=== PATIENT | female | born 1980 | race African-American/Black ===

== ENCOUNTER 2024-10-06 09:10 | Inpatient (IN) | payer BC ==
[~2024-10-06] VITALS: Ht 175.3 cm; Wt 75.3 kg
--- NOTE | 2024-10-06 09:52 | NUR ---
PACIENTE ALERTA Y ORIENTADA X 3. REFIERE DESDE EL FIN DE SEMANA ESTA ESTRENIDA.
--- NOTE | 2024-10-06 10:45 | NUR ---
PACIENTE PENDIENTE A XRAY
[2024-10-06] MEDS ORDERED: 0.9 % SODIUM CHLORIDE 1,000 ML IV SCH (11:00)
[2024-10-06] MEDS ORDERED: BARIUM SULFATE 450 ML ORAL.SUSP PO ONE (11:10)
[2024-10-06 11:21] LABS: HEMATOCRIT 41.1 % (36.0-45.00); HEMOGLOBIN 14.1 g/dL (12.0-15.00); MEAN CELL VOLUME 88.6 fL (80.00-100.00); MEAN CORPUSCULAR HEMOGLOBIN 30.4 pg (27.00-32.0); MEAN CORPUSCULAR HGB CONC 34.4 g/dl (32.0-36.0); PLATELET COUNT 343 K/uL (150-450); RED BLOOD COUNT 4.64 M/uL (4.00-6.00); RED CELL DISTRIBUTION WIDTH 13.4 % (11.5-14.5)
--- NOTE | 2024-10-06 11:23 | NUR ---
SE ORIENTA A PACIENTE SOBRE TRATAMIENTO MEDICO QUIEN INDICA ENTENDER Y ACEPTAR. SE COLECTAN MUESTRAS DE LABORATORIO BAJO MEDIDAS ASEPTICAS Y SE REALIZA VENOPUNCION LA CUAL SE ENCUENTRA PATENTE FORTINO DE EDEMA Y ENROJECIMIENTO. SE OFRECE A PACIENTE CONTRASTE POR BOCA Y SE LE EXPLICA JATIN CONSUMIRLO Y NOTIFICAR A PERSONAL DE ENFERMERIA CUANDO LO CULMINE.
[2024-10-06 11:44] LABS: PARTIAL THROMBOPLASTIN TIME 29.9 SECONDS (22.0-34.0); PROTHROMBIN TIME 10.9 SECONDS (9.0-11.5)
[2024-10-06 11:46] LABS: ALBUMIN 3.7 gm/dL (3.4-5.0); BILIRUBIN TOTAL 0.53 mg/dL (0.3-1.2); CALCIUM 9.3 mg/dL (8.5-10.1); CREATININE SERUM 0.73 mg/dL (0.55-1.02); GFR 86.61; GLOBULINA 3.8 G/DL (2.4-3.5); POTASSIUM 3.67 mEq/L (3.5-5.1); TOTAL PROTEIN 7.5 gm/dL (6.4-8.2)
[2024-10-06] MEDS ORDERED: LACTULOSE 20 G/30 ML BLIST.PACK ONE ×2 (14:13→17:24)
[2024-10-06] MEDS ORDERED: LACTULOSE 10 G/15 ML ML RECTAL ONE (14:15)
--- NOTE | 2024-10-06 14:21 | NUR ---
SE ADMINSITRA SOAP ENEMA CON CEPHULAC A PACIENTE.
[2024-10-06] MEDS ORDERED: METOCLOPRAMIDE HCL 10 MG in DEXTROSE 5 % IN WATER 50 ML IV ONE (14:45)
[2024-10-06] MEDS ORDERED: METOCLOPRAMIDE HCL 5 MG/ML VIAL ONE ×2 (14:51→14:53)
[2024-10-06] MEDS ORDERED: LACTULOSE 20 G/30 ML BLIST.PACK PO STA (14:56)
[2024-10-06] MEDS ORDERED: MAGNESIUM HYDROXIDE 400 MG/5 ML ML PO STA (14:56)
[2024-10-06] MEDS ORDERED: KETOROLAC TROMETHAMINE 30 MG VIAL ONE (15:21)
[2024-10-06] MEDS ORDERED: KETOROLAC TROMETHAMINE 30 MG VIAL IV ONE (15:30)
--- NOTE | 2024-10-06 15:47 | NUR ---
SE ADMINISTRAN MEDICAMENTOS NILES ORDEN MEDICA.
[2024-10-06] MEDS ORDERED: MINERAL OIL 30 ML BLIST.PACK PO ONE (17:15)
[2024-10-06] MEDS ORDERED: MAGNESIUM HYDROXIDE 400 MG/5 ML ML PO ONE (17:15)
[2024-10-06] MEDS ORDERED: LACTULOSE 20 G/30 ML BLIST.PACK PO ONE (17:15)
[2024-10-06] MEDS ORDERED: MINERAL OIL 30 ML BLIST.PACK ONE (17:24)
[2024-10-06] MEDS ORDERED: MAGNESIUM HYDROXIDE 30 ML BLIST.PACK PO ONE (17:24)
[2024-10-06] MEDS ORDERED: ONDANSETRON HCL 2 MG/ML VIAL ONE (20:00)
[2024-10-06] MEDS ORDERED: ONDANSETRON HCL 2 MG/ML VIAL IV ONE (20:00)
[2024-10-06] MEDS ORDERED: DICYCLOMINE HCL 20 MG TABLET PO ONE (21:45)
[2024-10-06] MEDS ORDERED: MEPERIDINE HCL/PF 50 MG/ML VIAL IM ONE (21:45)
--- NOTE | 2024-10-06 23:00 | NUR ---
SE RECIBE PTE ALERTA ORIENTADA X3 EN CAMA CON BARANDAS ELEVADAS POR PALOMARES SEGURIDAD.VENOPUNCION PATENTE FORTINO EDEMA Y ERITEMA RECIBIENDO 0.9 NSS BAJANDO 100ML/HR.SE ADMINISTRAN MEDICAMENTOS NILES ORDEN MEDICA.PENDIENTE A HIDRATACION EN LA NOCHE.REECE MUESTRAS MANANA EN LA MANANA.
[2024-10-06] MEDS ORDERED: DICYCLOMINE HCL 10 MG CAPSULE PO ONE (23:43)
[2024-10-07] MEDS ORDERED: ONDANSETRON HCL 2 MG/ML VIAL ONE (05:33)
[2024-10-07] MEDS ORDERED: ONDANSETRON HCL 2 MG/ML VIAL IV ONE (05:45)
[2024-10-07] MEDS ORDERED: METRONIDAZOLE/SODIUM CHLORIDE 100 ML IV SCH (10:23)
[2024-10-07] MEDS ORDERED: CIPROFLOXACIN IN 5 % DEXTROSE 200 ML IV SCH (10:23)
[2024-10-07] MEDS ORDERED: FAMOTIDINE/PF 20 MG in 0.9 % SODIUM CHLORIDE 8 ML IV PUSH SCH (10:25)
[2024-10-07] MEDS ORDERED: FAMOTIDINE/PF 20 MG/2 ML VIAL ONE (11:24)
[2024-10-07] MEDS ORDERED: CIPROFLOXACIN IN 5 % DEXTROSE 400 MG/200 ML PIGGYBAG IV ONE (11:24)
[2024-10-07] MEDS ORDERED: METRONIDAZOLE/SODIUM CHLORIDE 500 MG/100 ML PIGGYBACK IV ONE (11:24)
[2024-10-07] MEDS ORDERED: POLYETHYLENE GLYCOL 3350 17 GM BLIST.PACK PO SCH (12:41)
[2024-10-07] MEDS ORDERED: MINERAL OIL 30 ML BLIST.PACK PO SCH (12:44)
[2024-10-07] MEDS ORDERED: LACTULOSE 20 G/30 ML BLIST.PACK PO SCH (12:45)
[2024-10-07] MEDS ORDERED: MINERAL OIL 30 ML BLIST.PACK ONE (13:48)
[2024-10-07] MEDS ORDERED: LACTULOSE 20 G/30 ML BLIST.PACK ONE (13:48)
[2024-10-07 15:51] VITALS: BP 121/75; O2SAT 100
[2024-10-07] MEDS ORDERED: SENNOSIDES 1 TAB TABLET PO SCH (17:00)
[2024-10-07] MEDS ORDERED: KETOROLAC TROMETHAMINE 30 MG VIAL IV PRN (17:30)
[2024-10-07] MEDS ORDERED: POLYETHYLENE GLYCOL 3350 238 GM POWDER PO ONE (17:30)
[2024-10-07 22:51] VITALS: BP 114/69
[2024-10-08 05:12] LABS: CALCIUM 8.4 mg/dL (8.5-10.1); CREATININE SERUM 0.58 mg/dL (0.55-1.02); GFR 112.93; POTASSIUM 3.19 mEq/L (3.5-5.1)
[2024-10-08 08:51] VITALS: BP 111/68
[2024-10-08] MEDS ORDERED: MINERAL OIL 30 ML BLIST.PACK PO NR (13:00)
[2024-10-08] MEDS ORDERED: POLYETHYLENE GLYCOL 3350 17 GM BLIST.PACK PO NR (13:00)
[2024-10-08] MEDS ORDERED: LACTULOSE 20 G/30 ML BLIST.PACK PO NR (13:00)
[2024-10-09] MEDS ORDERED: POLYETHYLENE GLYCOL 3350 17 GM BLIST.PACK PO SCH (09:00)
[2024-10-09] MEDS ORDERED: LACTULOSE 20 G/30 ML BLIST.PACK PO SCH (09:00)
[2024-10-09] MEDS ORDERED: MINERAL OIL 30 ML BLIST.PACK PO SCH (09:00)
== END 2024-10-08 15:13 | disposition left against medical advice (07) | DRG 392 ==
LOC: ER 09:13 → MEDI 10-07 10:47 → SEC-K 10-07 10:47 → MEDI 10-07 12:56
PROVIDERS: General Practice; ADMIT Student in an Organized Health Care Education/Training Program; ATTEND Student in an Organized Health Care Education/Training Program
DX: K59.00 Constipation, unspecified (principal); R11.2 Nausea with vomiting, unspecified; K52.89 Other specified noninfective gastroenteritis and colitis; Z53.29 Procedure and treatment not carried out because of patient's decision for other reasons